=== PATIENT | female | born 1980 | race Caucasian/White ===

== ENCOUNTER → 2019-11-13 10:17 | Outpatient (CLI) | payer OTHER, SELFPAY ==
--- NOTE | ~2019-11-13 | XR_ITS ---
EXAMINATION: XR wrist RT min 3V DATE: 11/13/2019 10:37 INDICATION: Right wrist radial-sided pain. TECHNIQUE: 4 views of right wrist were obtained. COMPARISON: None. FINDINGS: Bone alignment is normal. No fracture. Joint spaces are well maintained. IMPRESSION: 1. Normal right wrist. Reviewed, dictated and finalized at location B. [employer] IMPRESSION: 1. Normal right wrist.
== END ==
PROVIDERS: PCP Family Medicine; Visit Provider Family Medicine
DX: M25.531 Pain in right wrist (principal)
CPT/HCPCS: 73110

== ENCOUNTER 2020-03-30 10:00 | Outpatient (RCR) | payer OTHER, SELFPAY ==
[2020-02-18 08:01] VITALS: BP_SYST 75
--- NOTE | 2020-02-18 09:20 | PTOPEVAL ---
PHYSICAL THERAPY EVALUATION AND PLAN OF CARE 02-18-2020 The PT evaluation was completed for the diagnosis of L shoulder and knee pain. Her plan of treatment is scheduled for 2x/week for 4 weeks. With the self assessment functional scoring, she rated herself for the Quick DASH 80% limitation and LE Functional Scale at 62% limitation in activity tolerance. Thank you for referring Yarely Ewing to [facility]. Please review, sign, date and return this plan of care EDITH. I agree with and certify that the following plan of care is medically necessary. Referring Physician Date Attending Provider: Yuliana Decker MD *PT Outpatient Evaluation Start: 02/18/20 08:01 Document 02/18/20 08:01 SEE (Rec: 02/18/20 09:10 SEE [id number]) Therapy Assessment Status Assessment Status Assessment Status Evaluation Outpatient Past Medical History Past Medical History Source of Past Medical History Patient Neurological History Hx Other Neurological Disorders Yes: neuropathy in hands and feet; ? lupus; Cardiovascular History Hx Hypertension Yes: meds Respiratory History Hx Other Respiratory Disorders Yes: smoker Musculoskeletal History Hx Other Musculoskeletal Disorders Yes: chronic pain-LBP,sh,elbow ,knees,hands,feet Hematological History Hx Other Hematological Disorders Yes: blood clots; Endocrine History Hx Diabetes Yes HEENT History Hx Other HEENT Disorders Yes: L eye blind-diabetes&non cancerous brain tumor Other History Hx Other Medical Conditions Yes: non cancerous brain tumor -monitoring Evaluation Information Problem Diagnosis chronic muscle pain- R knee and L shoulder pain Onset Aug 2019 Subjective Information gradual increase in pain of Query Text:As Reported By Patient/ knees and L shoulder; Family L shoulder- seeing ortho dr at [facility]-dr gave her exercises, made shoulder hurt more; is to have injection next week; B knees: R more pain than L: previously saw ortho, but insurance changed and now general dr managing knee pain; previous dx of patellar chondromalacia; recent doppler testing negative for blood clots LE; Previous Treatments Previous Treatments For This Problem PT here about 1 year for B knee pain- not really help Prior Level of Function Activity Level (Last 3 Months) Occupation not working due to medical
--- NOTE | 2020-03-04 13:55 | PCPTNOTE ---
Patient called & cancelled scheduled appointment this date due to transportation not arriving to pick her up.
--- NOTE | 2020-03-10 11:52 | PCPTNOTE ---
Patient called & cancelled scheduled appointment this date due to severe headache without relief.
--- NOTE | 2020-03-18 13:12 | PTOPEVAL ---
PHYSICAL THERAPY RE-EVALUATION 03-18-2020 Yarely has received 6 PT sessions, from February 17 to today, for the diagnosis of L shoulder and B knee pain/ chronic musculoskeletal pain. With today's self assessment functional activity questionnaires: Quick DASH for shoulder 82% limitation and LE functional scale 50% limitation. Compared to the initial evaluation: pain ratings for knees and L shoulder are the same; reported sleeping tolerance is the same; L shoulder AROM: flexion has increased by 15', abduction has decreased by 5', IR is the same and ER is less; R knee AROM has decreased with extension and increased with flexion; L knee has increased with extension and flexion ranges; LE strength is about the same with supine exercises. She is very guarded with movements, jumped with light pressure over her L shoulder and will not allow any passive stretching to her shoulder. Yarely has been educated on a home exercise program for stretching L shoulder and strengthening B LE's. She voiced frustration about her continued pain and situation of not being able to do much activity. She is to make a follow up appointment. If PT is to continue, please give her a new script. If additional therapy orders are not received, she will be discharged from PT. Thank you for referring Yarely Ewing to [facility]. Please review, sign, date and return this plan of care [facility]. I agree with and certify that the following plan of care is medically necessary. Referring Physician Date Attending Provider: Yuliana Decker, Document 03/18/20 12:30 SEE (Rec: 03/18/20 13:05 SEE [id number]) Assessment Status Re-evaluation Subjective Information Yarely reports: frustrated by Query Text:As Reported By Patient/ pain and not being able to do Family things; want to feel better and not hurt; am doing exercises for arm and legs every day; has seen ortho for her shoulder and had an injection into shoulder few weeks ago; does not have an appointment for dr to follow up, will call; Discussed with her and she understands--will HOLD on PT for now, if wants her to continue, will need new orders . Pain Assessment Timing of Pain Assessment Timing of Pain Assessment Assessment Pain Scale Pain Scale Used Numeric (1 - 10) Self Report Pain Assessment Left Shoulder(s) Reported Pain Level 8 Pain Frequency Chronic Other Pain Description post shoulder; electricity through whole arm ~ 10 x/day Lowest Pain Intensity 3 Greatest Pain Intensity 8 Other Pain Aggravating Factors cannot lie on L side, awaken from sleeping 3-4 x/night due
--- NOTE | 2020-03-30 10:43 | PCPTNOTE ---
pt did not show for today's appointment;
--- NOTE | 2020-03-30 10:43 | PCPTNOTE ---
NEW orders, dated 03-25-2020: Dr Decker: musculoskeletal pain: L and L shoulder, neck, upper back and lower back.
--- NOTE | 2020-04-19 13:42 | PCPTNOTE ---
PHYSICAL THERAPY DISCHARGE 04-19-2020 Attending Provider: Yuliana Dekcer MD Patient:Yarely Ewing Date of :1980 Ms. Ewing has not returned for any further treatments since the reevaluation on 03-18-2020. Therefore she will be discharged at this time. Refer to the reevaluation for her status at the last session. The goals were not addressed. Thank you for referring Yarely to [facility]. Please review, sign, date and return this discharge summary EDITH. I have been updated about the patient's current status and I agree with discharge from the above service at this time. Referring Physician Date
== END 2020-04-21 08:39 | disposition home or self-care (01) ==
LOC: ANHPT 10:00
PROVIDERS: PCP Family Medicine; Visit Provider Family Medicine
DX: M79.10 Myalgia, unspecified site (principal)
CPT/HCPCS: 97014; 97035; 97110; 97140; 97162; G0283

== ENCOUNTER 2020-05-14 13:45 | Observation (INO) | payer OTHER, SELFPAY ==
[2020-05-14] VITALS (11 sets, daily range): BP systolic 116–136; BP diastolic 63–93; PULSE 77–106; RESP 14–20; TEMP 36.1–36.7; O2SAT 86–97; BMI 42.9
--- NOTE | ~2020-05-14 | CT_ITS ---
EXAMINATION: CT brain wo con INDICATION: Unresponsiveness, headache COMPARISON: 09/10/2019 TECHNIQUE: Standard unenhanced head CT. The dose-length product (DLP) was 605.33 mGy-cm. The mA was a djusted according to patient size. Iterative reconstruction technique was employed. FINDINGS: There is no intracranial hemorrhage or infarction. There is a stable fat attenuation mass s uperolateral to the cerebellum at the right cerebellar tentorium. The ventricles are normal. There is no abnormal mass effect or midline shift. The kumar-white matter differentiation is normal. The basal cisterns are patent. Again noted is an old blowout fracture of the medial wall of the left orbit. Th ere is mild mucosal thickening of the paranasal sinuses. IMPRESSION: 1. No acute intracranial abnormality. 2. Unchanged fat attenuation mass along the right cerebellar tentorium, consistent with dermoid or li thomas. Reviewed, dictated and finalized at location A. IMPRESSION: 1. No acute intracranial abnormality. 2. Unchanged fat attenuation mass along the right cerebellar tentorium, consist ent with dermoid or lipoma.
--- NOTE | ~2020-05-14 | US_ITS ---
EXAMINATION: US right upper quadrant DATE: 05/16/2020 08:50 INDICATION: Elevated liver function tests TECHNIQUE: Multiple grayscale and Doppler ultrasound images of the abdomen were obtained. COMPARISON: 02/16/2019 FINDINGS: The head and and body of the pancreas are normal. The pancreatic tail is obscured by bowel gas. The liver demonstrates increased echogenicity, heterogenous echotexture, and decreased through t ransmission. No surface nodularity. Normal hepatopetal flow in the main portal vein. The gallbladder is normal with no abnormal wall thickening, pericholecystic fluid or stones. The normal common bile d uct measures 4 mm. There was no sonographic Rodas sign. IMPRESSION: 1. Diffuse hepatic steatosis. Reviewed, dictated and finalized at location B.
--- NOTE | ~2020-05-14 | CT_ITS ---
EXAMINATION: CTA chest PE protocol DATE: 05/15/2020 11:58 INDICATION: Unresponsive episode. Intraluminal thrombus of right popliteal and gastrocnemius veins TECHNIQUE: Computed tomography angiography (CTA) of the chest was performed with 100 mL Omnipaque-350 intravenous contrast timed to evaluate the pulmonary arteries. Coronal maximum intensity projection 3D-reconstructions were created by the technologist. Automated exposure control and iterative reconst ruction technique were employed. Exam dose: 988.96 mGy-cm total exam DLP. COMPARISON: 05/15/2020 venous duplex examination of the lower extremities FINDINGS: There is diagnostic contrast enhancement of the pulmonary arteries and no evidence of pulmo nary embolism. No thoracic aortic aneurysm or dissection is evident. Normal heart size. Coronary artery calcifications. No pericardial or pleural effusion. No hilar or mediastinal mass lesion or lymphadenopathy. The lungs are clear of infiltrate or consolid ation. Normal morphology of the adrenal glands. Included skeletal structures are unremarkable. IMPRESSION: No evidence of pulmonary embolism Reviewed, dictated and finalized at Location A. Reviewed, dictated and finalized at location A.
--- NOTE | ~2020-05-14 | US_ITS ---
US venous doppler [facility] DATE: 05/15/2020 10:13 INDICATION: Swelling right leg TECHNIQUE: Real-time and color flow imaging and Doppler analysis COMPARISON: 09/05/2015 Venous duplex examination right lower extremity FINDINGS: There is greater saphenous vein patency. Thrombus is identified at the right popliteal and gastrocnemius veins. Otherwise there is spontaneous and phasic flow and normal augmentation and color flow signal at the common femoral, femoral and pos terior tibial and peroneal veins. IMPRESSION: Thrombus is identified at the right popliteal and gastrocnemius veins Reviewed, dictated and finalized at Location A. Reviewed, dictated and finalized at location A. IMPRESSION: Thrombus is identified at the right popliteal and gastrocnemius vei ns
--- NOTE | ~2020-05-14 | XR_ITS ---
EXAMINATION: XR chest 1V portable INDICATION: Hypoxia TECHNIQUE: Portable AP chest at 1452 hours COMPARISON: None available FINDINGS: There are minimal airspace opacities of the lung bases. No pleural effusion or pneumothorax is identified. The cardiomediastinal silhouette is normal. IMPRESSION: 1. Minimal airspace opacities of the lung bases, consistent with atelectasis versus pneumonia. Reviewed, dictated and finalized at location A. IMPRESSION: 1. Minimal airspace opacities of the lung bases, consistent with atelectasis ve rsus pneumonia.
--- NOTE | ~2020-05-14 | CT_ITS ---
EXAMINATION: CTA brain DATE: 05/16/2020 17:09 INDICATION: Chronic headache. TECHNIQUE: Computed tomographic angiography (CTA) of the head was performed without and with 100 mL O mnipaque-350 intravenous contrast. Automated exposure control and iterative reconstruction technique were employed. The dose-length product was 1159.85 mGy-cm. Maximum intensity projection 3D reconstru ctions were created. Volume-rendered 3D reconstructions of the intracranial arteries were created by the technologist on a separate workstation. COMPARISON: Head CT 05/14/2020 FINDINGS: There is no intracranial hemorrhage or acute infarction. Again seen is a 1.8 x 0.5 cm mass of fat along right cerebellar tentorium. There is an old blowout fracture of medial wall of left orbi t. There is mild mucosal thickening in right maxillary sinus. The mastoid air cells are normal. The v ertebral arteries are codominant. There is no significant stenosis of basilar artery or the posterior cerebral arteries. The posterior communicating arteries are normal. There is no significant stenosis of the intracranial internal carotid arteries or anterior or middle cerebral arteries. Anterior comm unicating artery is normal. There is no aneurysm. IMPRESSION: 1. Stable mass of fat along right cerebellar tentorium, consistent with a dermoid versus lipoma. 2. No aneurysm or significant intracranial arterial stenosis. Reviewed, dictated and finalized at location A. IMPRESSION: 1. Stable mass of fat along right cerebellar tentorium, consistent with a dermo id versus lipoma. 2. No aneurysm or significant intracranial arterial stenosis.
--- NOTE | 2020-05-14 14:04 | ECG_ITS ---
Measurements Intervals Comfort Rate: 89 P: 37 DC: 176 QRS: 16 QRSD: 93 T: 61 QT: 391 QTc: 476 Interpretive Statements SINUS RHYTHM LOW QRS VOLTAGE IN LIMB LEADS BORDERLINE R WAVE PROGRESSION, ANTERIOR LEADS BORDERLINE ECG Electronically Signed On 05-14-2020 20:17:09 CDT by Benedicto Arora D.O.
[2020-05-14 14:36] LABS: Alveolar/Arterial O2 Gradient 30.5 mmHg; Base Excess ABG -2.7 mEq/l (+/-2.0); Fractional Inspired Oxygen 21 %; HCO3 ABG 24.2 mEq/l (22.0-26.0); Oxygen Content ABG 19.3 %vol (16.0-22.0); Oxygen Saturation ABG 88.3 % (95.0-100.0); Oxyhemoglobin 85.5 % THb (90.0-100.0); PCO2 ABG 49.6 mmHg (35.0-45.0); PO2 ABG 59.8 mmHg (80.0-100.0); PO2 FiO2 Ratio Arterial Blood 2.85 %; Total Hemoglobin 16.1 g/dL (12.0-18.0); pH ABG 7.306 (7.350-7.450)
[2020-05-14 14:37] LABS: Device ROOM AIR; Modified Allen's Test Pass; Site Drawn RIGHT RADIAL
[2020-05-14] MEDS: ONDANSETRON INJ 4 MG/2 ML VIAL (14:42)
[2020-05-14 14:53] LABS: Basophils Absolute Auto 0.1 K/mm3 (0.0-0.1); Basophils Percent Auto 0.5 % (0.2-1.2); Eosinophils Absolute Auto 0.5 K/mm3 (0-0.3); Eosinophils Percent Auto 5.5 % (0-4.4); Hemoglobin 15.9 g/dL (12.0-15.0); Immature Granulocyte Absolute 0.06 K/mm3 (0.00-0.031); Immature Granulocyte Percent A 0.6 % (0-0.5); Lymphocytes Absolute Auto 1.64 K/mm3 (0.9-3.2); Lymphocytes Percent Auto 16.9 % (18.3-44.2); Mean Corpuscular HGB Conc 31.2 g/dl (32-36); Mean Corpuscular Hemoglobin 28.2 pg (26-34); Mean Corpuscular Volume 90.4 fl (80-100); Mean Platelet Volume 11.3 fl (7.4-10.4); Monocytes Absolute Auto 0.5 K/mm3 (0.1-0.6); Monocytes Percent Auto 5.4 % (2.6-8.5); Neutrophils Absolute Auto 6.9 K/mm3 (1.3-6.7); Neutrophils Percent Auto 71.1 % (45.5-73.1); Platelet Count Result 250 k/mm3 (150-375); Red Blood Count 5.64 M/mm3 (4.2-5.4); Red Cell Distribution Width 13.3 % (11.5-14.5); White Blood Count 9.7 K/mm3 (4.5-10.0)
[2020-05-14 15:03] LABS: INR 0.9; Prothrombin Time 12.3 Seconds (11.1-14.7)
--- NOTE | 2020-05-14 15:03 | ED.AMS ---
HPI - Altered Mental Status General Chief Complaint: Altered Mental Status Stated Complaint: ams Time Seen by Provider: 05/14/20 14:20 Source: patient Mode of arrival: ambulatory Limitations: no limitations History of Present Illness HPI narrative: This patient is a 39 year old female with history chronic pain on hydrocodone who presents for evaluation of decreased responsiveness. PAtient states she remembers going outside with her brother and then next thing EMS arrived. PAtient was found unresponsive with pinpoint pupil. She was given 4 mg narcan intranasal and she became responsive. Patimaggie is now having nausea and vomiting. She states she has been taking norco 10mg/325 4 times a day for a year. She denies taking extra and she denies street drugs. She reports she other aguilar felt fine. She denies report mild headache and she has known benign brain tumor. MD complaint: decreased responsiveness Related Data Home Medications Medication Instructions Recorded Confirmed albuterol sulfate 2 inh INHALATION Q4H PRN 05/14/20 alprazolam 0.5 mg PO DAILY PRN 05/14/20 ertugliflozin [Steglatro] 15 mg PO DAILY 05/14/20 fenofibrate 160 mg PO HS 05/14/20 hydrocodone-acetaminophen 1 tablet PO QID 05/14/20 hydroxyzine HCl 25 mg PO HS 05/14/20 insulin degludec [Tresiba 186 unit SUBCUT DAILY 05/14/20 FlexTouch U-200] insulin regular human [Humulin R 30 sliding scale dose SUBCUT 05/14/20 Regular U-100 Insuln] USEASDIRECTD metformin 1,000 mg PO BID 05/14/20 metoprolol succinate 100 mg PO DAILY 05/14/20 ropinirole 1 mg PO HS 05/14/20 rosuvastatin 20 mg PO HS 05/14/20 spironolactone 12.5 mg PO DAILY 05/14/20 torsemide 20 mg PO DAILY 05/14/20 valsartan 80 mg PO DAILY 05/14/20 zolpidem 5 mg PO HS 05/14/20 Allergies Allergy/AdvReac Type Severity Reaction Status Date / Time Fish Containing Products Allergy Unknown Anaphylactic Verified 02/16/19 13:46 Shock ipecac Allergy Unknown Siezure Verified 02/16/19 13:46 ketorolac Allergy Unknown Swelling Verified 05/14/20 17:06 of Lip/Tongue/Throat tramadol Allergy Unknown Hives / Verified 02/16/19 13:46 Red Face Review of Systems Review of Systems: All systems reviewed & are unremarkable except as noted in HPI and below PMFSH Past Medical History Medical History (Updated 05/14/20 @ 19:30 by Felisa Ferreira MD) Chronic back pain Diabetes mellitus Hyperlipidemia Surgical History Surgical History (Updated 05/14/20 @ 15:10 by Felisa Ferreira MD) H/O tubal ligation S/P endometrial ablation Social History Social History (Updated 05/14/20 @ 15:09 by Felisa Ferreira MD) Smoking status: Never smoker Alcohol intake: never Substance use: never Exam Narrative: Exam Narrative: GENERAL: morbid obesity and in no acute distress. HEAD: Normocephalic, atraumatic EYES: PERRLA and EOMI, conjunctiva clear without discharge EARS: TM's clear bilaterally without erythema or dullness NOSE: Nares clear, no rhinorrhea or epistaxis THROAT:Mucous membranes moist, Oropharynx normal without erythema, exudate, peritonsillar swelling or fluctuance NECK: Supple, without lymphadenopathy or mass RESPIRATORY: No respiratory distress, Airway patent, Respirations non-labored, Clear to auscultation without rales, rhonchi or wheeze HEART: Regular rate and rhythm. No murmur heard. Normal peripheral pulses. ABDOMEN: Soft, nontender, nondistended, normal active bowel sounds. No masses. No rebound or guarding, No organomegaly. EXTREMITIES: No edema, normal strength with full range of motion. SKIN: Warm, dry, normal color without rash NEURO: Alert and oriented x3. CN 2-12 grossly intact. No focal deficits. PSYCH: Normal mood and affect. Course Reevaluation(s) Reevaluation #1: Patient is more alert. PAtient states her family that was present during event today he she had seizure activity. She states she slumped over and then her eyes rolled back and patie
[2020-05-14 15:04] LABS: Partial Thromboplastin Time 22.4 SECONDS (22.3-36.8)
[2020-05-14 15:06] LABS: Acetaminophen < 10 ug/mL (10-30); Ethanol < 10 mg/dL (<10); Salicylate < 1.0 mg/dL (2-20)
[2020-05-14 15:07] LABS: Alanine Aminotransferase 62 U/L (4-35); Albumin Level 4.4 g/dL (3.5-5.1); Alkaline Phosphatase 67 U/L (38-126); Anion Gap 12.4 mmol/L (7-16); Aspartate Amino Transferase 90 U/L (14-36); Bilirubin,Total 0.3 mg/dL (0.2-1.3); Blood Urea Nitrogen 45 mg/dL (7-17); Calcium 9.7 mg/dL (8.4-10.2); Carbon Dioxide 24 mmol/L (22-30); Chloride 109 mmol/L (98-107); Estimated CRCL calculation 85 ml/min; Estimated Glomerular Filt Rate 55; Glucose 168 mg/dL (65-105); Potassium 4.4 mmol/L (3.4-5.0); Sodium 141 mmol/L (137-145)
[2020-05-14] MEDS: NALOXONE HCL 0.4 MG/ML VIAL IV PUSH (15:14)
[2020-05-14] MEDS: SODIUM CHLORIDE 0.9% IV 1,000 ML 999 ML IV CONT (15:38)
[2020-05-14 16:52] LABS: Add Urine Microscopic? YES; Appearance Urine Clear (Clear); Bacteria Urine Trace /hpf; Bilirubin Urine Negative (Negative); Blood Urine Negative (Negative); Color Urine Straw (Yellow); Glucose Urine UA 3+ mg/dL (Negative); Ketones Urine Negative (Negative); Leukocyte Esterase Ur 2+ LEU/UL (Negative); Nitrate Urine Negative (Negative); Protein Urine 2+ mg/dL (Negative); Specific Grav Ur 1.025 (1.001-1.035); Squamous Epithelial Cell Urine Few /hpf (Few); Urobilinogen Urine Negative mg/dL (<2.0); WBC Urine 0-3 /hpf
[2020-05-14 17:02] LABS: Amphetamine Screen Urine Negative (Negative); Barbiturate Screen Urine Negative (Negative); Benzodiazepines Screen Urine Negative (Negative); Cannabinoid Screen Urine Positive (Negative); Cocaine Screen Urine Negative (Negative); Methadone Screen Urine Negative (Negative); Opiate Screen Urine Positive (Negative); Phencyclidine Screen Urine Negative (Negative)
[2020-05-14 18:14] LABS: Glucose Point of Care 115 (65-105)
[2020-05-14] MEDS: SODIUM CHLORIDE 0.9% IV 1,000 ML 125 ML IV CONT (19:04)
--- NOTE | 2020-05-14 21:00 | PM.IMHP ---
H&P: HPI History of Present Illness Chief complaint: Unreponsive episode. Narrative: Yarely Ewing is a 39-year-old female with multiple medical problems to include type 2 diabetes mellitus, hypertension, chronic kidney disease, hypertension, hyperlipidemia, and chronic pain who presented to the emergency department earlier this afternoon via EMS for evaluation after an unresponsive episode. She was in her usual state of health today and not long prior to arrival she was sitting outside with her brother, having a cigarette. According to her brother, the patient complained of it being hot outside before she slumped backwards and exhibited seizure-like activity. reportedly her color turned dusky and lips were purple, and EMS was summoned. On their arrival she was unresponsive with pinpoint pupils and shallow respirations, a which she was given assistance via Ambu bag. 4 milligrams of Narcan was given intranasally and she became responsive with nausea and vomiting shortly thereafter. She does take hydrocodone 10 milligrams up to 4 times a day for over a year for chronic pain, but she rarely takes them as prescribed, typically taking only 1 or 2 a day. She did take 1 tablet this morning and she denies ever taking extra than what is prescribed. Her glucose was about 120 this morning and was reportedly 190 on EMS arrival. She has had 3 other similar episodes in the last year or so, but has never had it worked up. Today was the 1st day that it was actually witnessed by someone else. She had a seizure many years ago attributed to ipecac. She has no history of sleep apnea and denies orthopnea, PND, and daytime somnolence. Her boyfriend has never mentioned that she snores and he has never witnessed any apneic episodes. At the time my evaluation she has no significant complaints except for mild headache. She is understandably concerned about what happened today. She denies vertigo, focal weakness, paresthesias, chest pain, pleuritic pain, palpitations, shortness of breath, nausea, vomiting, and sweats. Review of Systems Review of Systems: Narrative: 12 systems were reviewed with pertinent positives and negatives as per HPI. She denies sick contacts and recent travel. No cough or shortness of breath. 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 She is afraid to have surgery on that eye as she went blind after having surgery for her retinal detachment. She believes her diabetes is well controlled with fasting glucose never greater than 140. Last hemoglobin A1c was around 7%. She has been following a keto diet and has lost some weight. No history of cardiac dysrhythmia or obstructive sleep apnea. She has had no further instances of nausea or vomiting since the ambulance. Except as documented, all other systems were reviewed and are negative. [facility] Past Medical History Medical History (Updated 05/15/20 @ 00:07 by Raquel Broderick PA-C) Anxiety Benign brain tumor Chronic back pain Chronic kidney disease, stage 3 Baseline creatinine is around 1.30. Deep venous thrombosis Previously reported positive for lupus anticoagulant however further workup per life manager at [facility] determined that this was erroneous. 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 History of genitourinary surgery Urethra rebuilt with stent in place. History of hysterectomy History of right salpingo-oophorectomy (02/23/15) Pathology revealed immature cystic teratoma. History of tubal ligation History of unilater
[2020-05-15] VITALS (10 sets, daily range): BP systolic 113–147; BP diastolic 72–82; PULSE 69–89; RESP 16; TEMP 36.3–37.1; O2SAT 94–98
[2020-05-15 00:34] LABS: Magnesium 2.2 mg/dL (1.6-2.3)
[2020-05-15 00:37] LABS: D Dimer 0.24 ug/mL (<0.48)
[2020-05-15] MEDS: SODIUM CHLORIDE 0.9% IV 1,000 ML 125 ML IV CONT (03:35)
[2020-05-15 06:06] LABS: Basophils Percent Auto 0.5 % (0.2-1.2); Eosinophils Absolute Auto 0.3 K/mm3 (0-0.3); Hematocrit 45.3 % (37.0-47.0); Immature Granulocyte Absolute 0.03 K/mm3 (0.00-0.031); Immature Granulocyte Percent A 0.4 % (0-0.5); Lymphocytes Absolute Auto 2.03 K/mm3 (0.9-3.2); Lymphocytes Percent Auto 26.3 % (18.3-44.2); Mean Corpuscular HGB Conc 30.9 g/dl (32-36); Mean Corpuscular Hemoglobin 28.6 pg (26-34); Mean Corpuscular Volume 92.6 fl (80-100); Mean Platelet Volume 11.5 fl (7.4-10.4); Monocytes Absolute Auto 0.6 K/mm3 (0.1-0.6); Monocytes Percent Auto 7.5 % (2.6-8.5); Neutrophils Absolute Auto 4.7 K/mm3 (1.3-6.7); Neutrophils Percent Auto 61.3 % (45.5-73.1); Platelet Count Result 210 k/mm3 (150-375); Red Blood Count 4.89 M/mm3 (4.2-5.4); Red Cell Distribution Width 13.7 % (11.5-14.5); White Blood Count 7.7 K/mm3 (4.5-10.0)
[2020-05-15 06:32] LABS: Anion Gap 10.3 mmol/L (7-16); Blood Urea Nitrogen 39 mg/dL (7-17); Calcium 8.4 mg/dL (8.4-10.2); Carbon Dioxide 27 mmol/L (22-30); Chloride 108 mmol/L (98-107); Estimated CRCL calculation 80 ml/min; Estimated Glomerular Filt Rate 50; Glucose 84 mg/dL (65-105); Potassium 4.3 mmol/L (3.4-5.0); Sodium 141 mmol/L (137-145)
[2020-05-15 06:33] LABS: Alanine Aminotransferase 50 U/L (4-35); Albumin Level 3.8 g/dL (3.5-5.1); Alkaline Phosphatase 45 U/L (38-126); Aspartate Amino Transferase 43 U/L (14-36); Bilirubin,Total < 0.1 mg/dL (0.2-1.3)
[2020-05-15 07:37] LABS: Glucose Point of Care 71 (65-105)
[2020-05-15] MEDS: ENOXAPARIN 40 MG/0.4 ML SYRINGE SUB-Q (08:44)
[2020-05-15] MEDS: VALSARTAN 80 MG TABLET PO (08:45)
[2020-05-15] MEDS: TORSEMIDE 20 MG TABLET PO (08:45)
[2020-05-15] MEDS: SPIRONOLACTONE 12.5 MG TABLET PO (08:45)
[2020-05-15] MEDS: METOPROLOL SUCCINATE EXT REL 100 MG TABCR PO (08:46)
--- NOTE | 2020-05-15 09:59 | PC.NURSE ---
Patient does not want bed alarm on. She has taken a diuretic and has to go to the bathroom frequently. Reviewed fall precautions with her. disalarmed bed alarm for patient per her request.
--- NOTE | 2020-05-15 10:26 | PM.IMPN ---
Progress Note: A&P Assessment and Plan (1) Episode of unresponsiveness: Code(s): R41.89 - Other symptoms and signs involving cognitive functions and awareness Status: Acute Assessment and Plan: Patient had witnessed event that could be seizure from hypoglycemia, de kevon seizures (possibly related to the fatty mass near the cerebellum), unintentional drug overdose, PE or combination of such. Cardiac dysrhythmia seems less likely. We will continue telemetry and follow up on the echocardiogram. CT brain normal. EEG has been ordered. Neurology consult obtained. D-dimer is normal but Doppler positive for DVT. (2) Deep venous thrombosis: Code(s): I82.409 - Acute embolism and thrombosis of unspecified deep veins of unspecified lower extremity Status: Acute Assessment and Plan: Right LE venous doppler positive for DVT in the right popliteal and gastrocnemius veins. Patient has hx of DVT/PE. Her DVTs have his right leg. She mentions she year ago was clear. Will start Eliquis. Case management consult for specialized medicines. Obtain old records [facility]. (3) Polycythemia: Code(s): D75.1 - Secondary polycythemia Status: Acute Assessment and Plan: Patietn with mildly elevated Hgb felt related to her tobacco use and/or dehydration. Apnea link normal (6hrs on RA). Repeat Hgb normal with IV fluids. Okay to stop IV fluids. She does take Demadex and spironolactone chronically. (4) Chronic kidney disease, stage 3: Code(s): N18.3 - Chronic kidney disease, stage 3 (moderate) Status: Acute Assessment and Plan: Baseline Cr 1.3-1.5. Cr here better at 1.1-1.2. Suspect patient at baseline. Continue to follow. (5) Elevated LFTs: Code(s): R79.89 - Other specified abnormal findings of blood chemistry Status: Acute Assessment and Plan: Patient with mildly elevated AST and ALT. This is been noted in the past. Level trending downward since admission. No previous workup noted. Will check right upper quadrant and hepatitis panel. (6) Chronic back pain: Code(s): M54.9 - Dorsalgia, unspecified; G89.29 - Other chronic pain Status: Acute Assessment and Plan: Patient complaining chronic back pain. Will resume her [place] at lower dose and follow. Will resume her Lyrica as well. (7) Insulin dependent type 2 diabetes mellitus: Code(s): E11.9 - Type 2 diabetes mellitus without complications; Z79.4 - [facility] (current) use of insulin Status: Acute Assessment and Plan: No A1c listed. Glucose reviewed on 05/15/2020. Glucose mostly well controlled. Continue Invokana and Lantus. Continue Accu-Cheks covering with sliding scale. Hypoglycemia protocol available as needed. CHECK A1C (8) Essential hypertension: Code(s): I10 - Essential (primary) hypertension Status: Acute Assessment and Plan: Blood pressure reviewed on 05/15/2020. Blood pressure well controlled. Continue Diovan and Toprol. Adjust medications as needed. (9) Tobacco abuse: Code(s): Z72.0 - Tobacco use Status: Acute Assessment and Plan: Patient educated about the benefits of smoking cessation. (10) Hypoxia: Code(s): R09.02 - Hypoxemia Status: Acute Assessment and Plan: Patient was hypoxic in the field most likely related to the unresponsive event as detailed above. She has not been hypoxic here. Evaluation as above. Subjective Date/time seen: 05/15/20 10:26 Interval history: 39yo female with DM here for syncopal episode. SHe has had 4 epsiodes over the past 2 years where she has syncope that starts with heat in her feet that radiates up to her head. Yesterday, she was sitting outside when she felt 'hot' and then awoke in the ambulance. She was told she was shaking and apneic with 'turning purple'. No hx of seizures. SHe has DM and has hypoglycemi
[2020-05-15 10:59] LABS: Glucose Point of Care 240 (65-105)
[2020-05-15] MEDS: INSULIN GLARGINE (*BKC) 100 UNITS/ML 80 UNITS SUB-Q ×2 (11:14→20:55)
[2020-05-15] MEDS: INSULIN ASPART (*BKC) 100 UNITS/ML SUB-Q (11:16)
[2020-05-15] MEDS: PREGABALIN 50 MG CAPSULE 100 MG PO ×3 (11:21→23:31)
[2020-05-15] MEDS: APIXABAN 5 MG TABLET 10 MG PO ×2 (13:09→20:45)
[2020-05-15 16:28] LABS: Glucose Point of Care 184 (65-105)
--- NOTE | 2020-05-15 18:00 | WPDNEURCNPN ---
Assessment and Plan Assessment and plan (1) Deep venous thrombosis: Code(s): I82.409 - Acute embolism and thrombosis of unspecified deep veins of unspecified lower extremity Status: Acute (2) Tobacco abuse: Code(s): Z72.0 - Tobacco use Status: Acute (3) Essential hypertension: Code(s): I10 - Essential (primary) hypertension Status: Acute (4) Insulin dependent type 2 diabetes mellitus: Code(s): E11.9 - Type 2 diabetes mellitus without complications; Z79.4 - director long term care (current) use of insulin Status: Acute (5) Chronic back pain: Code(s): M54.9 - Dorsalgia, unspecified; G89.29 - Other chronic pain Status: Acute (6) Elevated LFTs: Code(s): R79.89 - Other specified abnormal findings of blood chemistry Status: Acute (7) Chronic kidney disease, stage 3: Code(s): N18.3 - Chronic kidney disease, stage 3 (moderate) Status: Acute (8) Polycythemia: Code(s): D75.1 - Secondary polycythemia Status: Acute (9) Episode of unresponsiveness: Code(s): R41.89 - Other symptoms and signs involving cognitive functions and awareness Status: Acute (10) Hypoxia: Code(s): R09.02 - Hypoxemia Status: Acute (11) Partial seizure: Code(s): R56.9 - Unspecified convulsions Status: Acute Additional Plan will start her on low-dose Keppra rest of the management as such and follow-up with Dr. Sander Tejeda told her she should not be driving Consult date: 05/15/20 Time Seen: 17:30 HPI: Yarely Ewing is a 39 year old female is seen because of the seizure episode she is known to cerebellar lesion which has been stable she is MRI incompatible due to electronic device for her bladder dysfunction she also has underlying chronic renal failure have a had headache and was taking hydrocodone and she swears that she was taking 4 times a day and she did not overdose she is back to her baseline still has a mild headache otherwise no chest pain no shortness of breath no fever chills sore throat she does have a DVT in her lower extremity and has been restarted with the anticoagulation Review of Systems Review of Systems: All systems reviewed & are unremarkable except as noted in HPI and below PMFSH Past Medical History Medical History Anxiety Benign brain tumor Chronic back pain Chronic kidney disease, stage 3 Baseline creatinine is around 1.30. Deep venous thrombosis Previously reported positive for lupus anticoagulant however further workup per structural analysis engineer at [facility] determined that this was erroneous. 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 History of genitourinary surgery Urethra rebuilt with stent in place. History of hysterectomy History of right salpingo-oophorectomy (02/23/15) Pathology revealed immature cystic teratoma. History of tubal ligation History of unilateral salpingectomy Status post excision of lipoma Multiple lipomas in benign cyst excised from the back, neck, and forearm. Family History Family History Father Acute myocardial infarction Social History Social History Social History: Surrogate decision maker: Janet Fernandez, mother. Code status: Full code. Smoking packs per day: 0.5 Smoking cigarettes per day: 10.0 Years smoked: 28 Smoking pack-years: 14.00 Smoking status: Current every day smoker Tobacco type: cigarettes Alcohol intake: never Subst
[2020-05-15] MEDS: ROSUVASTATIN 10 MG TABLET 20 MG PO (20:44)
[2020-05-15] MEDS: FENOFIBRATE 160 MG TABLET PO (20:45)
[2020-05-15] MEDS: levETIRAcetam 250 MG TABLET PO (20:45)
[2020-05-15] MEDS: rOPINIRole HCL 1 MG TABLET PO (20:47)
[2020-05-15 22:51] LABS: Glucose Point of Care 210 (65-105)
[2020-05-16] VITALS (8 sets, daily range): BP systolic 123–132; BP diastolic 73–79; PULSE 72–87; RESP 16–18; TEMP 35.6–36.9; O2SAT 97–98
--- NOTE | 2020-05-16 00:05 | ECHO_ITS ---
Patient Info Name: Yarely Ewing Age: 39 years : 1980 Gender: Female Ht: 69 in Wt: 290 lbs BSA: 2.59 m2 HR: 84 bpm BP: 123 / 79 mmHg Heart Rhythm: Sinus Rhythm Technical Quality: Good Exam Date: 05/16/2020 10:32 AM Exam Location: [facility] Pulmonary Exam Room: 342 Patient Status: Outpatient Admit Date: 05/14/2020 Staff Ordering Physician: Raquel Broderick PA-C Sports Recruiter: Bailey Irizarry RDCS Attending Provider: Patrice Manzo MD Referring Physician: Meggan JOHN; Exam Type: CA echo doppler color flow Study Info Indications - htn unresponsive episode Complete two-dimensional, color flow and Doppler transthoracic echocardiogram is performed. Summary 1. Left ventricular systolic function is normal, estimated at 65-70%. 2. There is mildly increased left ventricular wall thickness. 3. The left ventricular diastolic function is grade I diastolic dysfunction. 4. There is no aortic valve stenosis. 5. There is trace mitral valve regurgitation. 6. There is trace tricuspid valve regurgitation. 7. No pulmonary hypertension, estimated pulmonary arterial systolic pressure is 31 mmHg. Left Ventricle Left ventricular chamber dimension is normal. Left ventricular systolic function is normal, estimated at 65-70%. There is mildly increased left ventricular wall thickness. The left ventricular diastolic function is grade I diastolic dysfunction. Right Ventricle Right ventricular chamber dimension is normal. Right ventricular systolic function is normal. Left Atria Left atrial chamber dimension is normal. Right Atria Right atrial chamber dimension is normal. Aortic Valve The aortic valve is not well visualized. There is no aortic valve stenosis. There is no aortic valve regurgitation. Pulmonic Valve The pulmonic valve is not well visualized. There is trace pulmonic regurgitation. Mitral Valve The mitral valve has normal leaflets. There is trace mitral valve regurgitation. Tricuspid Valve The tricuspid valve leaflets are normal. There is trace tricuspid valve regurgitation. No pulmonary hypertension, estimated pulmonary arterial systolic pressure is 31 mmHg. Pericardium/Pleural The pericardium appears epicardial fat pad. Aorta The aortic root size at the sinus of Valsalva is normal. Left Ventricular Outflow Tract Name Value Normal LVOT 2D LVOT Diameter 2.01 cm LVOT Doppler LVOT Peak Gradient 6 mmHg LVOT Mean Gradient 3 mmHg LVOT VTI 25.78 cm LVOT VTI/AV VTI Ratio 0.86 LVOT Stroke Volume 82.05 ml LVOT CO 15.40 l/min LVOT CI 5.94 L/min/m2 Pulmonic Valve Name Value Normal PV Doppler PV Peak Gradient
[2020-05-16 00:15] LABS: Glucose Point of Care 173 (65-105)
--- NOTE | 2020-05-16 06:45 | PC.NURSE ---
pt. has been NPO since 24:00 on 05/16/2020, no orders for NPO, yet per pt. she was informed she would not be allowed to have food/drink past 24:00. 06:00/ 06:30 medications were held as well.
[2020-05-16 07:10] LABS: Alanine Aminotransferase 44 U/L (4-35); Albumin Level 3.6 g/dL (3.5-5.1); Alkaline Phosphatase 61 U/L (38-126); Anion Gap 10.3 mmol/L (7-16); Aspartate Amino Transferase 34 U/L (14-36); Bilirubin,Total < 0.1 mg/dL (0.2-1.3); Blood Urea Nitrogen 26 mg/dL (7-17); Calcium 8.4 mg/dL (8.4-10.2); Carbon Dioxide 26 mmol/L (22-30); Chloride 108 mmol/L (98-107); Estimated CRCL calculation 95 ml/min; Estimated Glomerular Filt Rate > 60; Glucose 137 mg/dL (65-105); Potassium 4.3 mmol/L (3.4-5.0); Sodium 140 mmol/L (137-145)
[2020-05-16 07:50] LABS: Folic Acid 9.6 ng/mL (2.76->20)
[2020-05-16 07:58] LABS: Hepatitis C Virus Antibody Negative (Negative)
[2020-05-16 08:09] LABS: Glucose Point of Care 118 (65-105)
[2020-05-16 08:27] LABS: Hepatitis B Core IgM Result Negative (Negative)
[2020-05-16] MEDS: levETIRAcetam 250 MG TABLET PO (09:23)
[2020-05-16] MEDS: VALSARTAN 80 MG TABLET PO (09:23)
[2020-05-16] MEDS: APIXABAN 5 MG TABLET 10 MG PO (09:23)
[2020-05-16] MEDS: CANAGLIFLOZIN 100 MG TABLET PO (09:24)
[2020-05-16] MEDS: INSULIN GLARGINE (*BKC) 100 UNITS/ML 80 UNITS SUB-Q (09:24)
[2020-05-16] MEDS: PREGABALIN 50 MG CAPSULE 100 MG PO ×2 (09:24→14:27)
[2020-05-16] MEDS: METOPROLOL SUCCINATE EXT REL 100 MG TABCR PO (09:26)
[2020-05-16 09:42] LABS: HAV RESULT Negative (Negative); Hepatitis B Surface Antigen Negative (Negative)
--- NOTE | 2020-05-16 09:42 | WPDNEUROPN ---
Progress Note: A&P Assessment and Plan (1) Episode of unresponsiveness: Code(s): R41.89 - Other symptoms and signs involving cognitive functions and awareness Status: Acute (2) Frequent headaches: Code(s): R51 - Headache Status: Acute Additional Plan seizure and headaches R/O aneurysm will need CTA Review of Systems Review of Systems: All systems reviewed & are unremarkable except as noted in HPI and below Exam Const: General: cooperative, healthy appearing, comfortable and no acute distress Nutritional Appearance: obese Orientation/consciousness: patient oriented x3 Limitations: no limitations HENMT: Head: normal to inspection Ears: hearing grossly normal bilaterally General nose exam: Normal external nose present and No nasal discharge present Face and sinus: normal facial exam Eyes: General: appearance normal, both eyes and all related structures Neck: Neck: full ROM Resp: Effort & Inspection: normal respiratory effort and able to speak in complete sentences Auscultation: clear to auscultation bilaterally Cardio: Rate: regular rate Rhythm: regular rhythm Skin: General skin exam: no rashes or lesions noted Neuro: General: patient oriented x3 Cranial nerves: Yes CN's II-XII intact bilaterally Cognition (Neuro): normal cognition Motor exam (neuro): 5/5 motor strength present throughout Sensory Exam: normal sensation Deep tendon reflexes (DTR's): Right triceps reflex intensity grade: 1+, Left triceps reflex intensity grade: 1+, Rt Biceps (C5, C6): 1+, Left biceps reflex intensity grade: 1+, Right brachioradialis reflex intensity grade: 1+, Left brachioradialis reflex intensity grade: 1+, Right patellar reflex intensity grade: 1+, Left patellar reflex intensity grade: 1+, Right ankle reflex intensity grade: 1+ and Left ankle reflex intensity grade: 1+ Plantar Reflex Responses: downgoing: bilateral Psych: Appearance: grossly normal Objective Data Vital Signs Vital Signs: Vital Signs - 24 hr 05/15/20 12:00 05/15/20 14:00 05/15/20 15:59 Temperature 36.5 C Pulse Rate 89 72 82 Respiratory Rate 16 Blood Pressure 147/73 H Pulse Oximetry 98 05/15/20 20:00 05/15/20 21:01 05/16/20 00:00 Temperature 37.1 C Pulse Rate 76 77 74 Respiratory Rate 16 Blood Pressure 130/82 Pulse Oximetry 94 05/16/20 04:00 05/16/20 06:00 05/16/20 09:26 Temperature 36.9 C Pulse Rate 72 76 82 Respiratory Rate 16 Blood Pressure 123/79 Pulse Oximetry 98 Intake/Output Intake/Output: Intake & Output 05/13/20 05/14/20 05/15/20 05/16/20 23:59 23:59 23:59 23:59 Intake Total 1340 5080 320 Output Total 4900 1400 Balance 1340 180 -1080 Meds/Results Medications: Active Medications Generic Name Dose Route Start Last Admin Trade Name Freq PRN Reason Stop Dose Admin Acetaminophen 650 mg 05/15/20 00:05 Tylenol Tablet PO Q6H PRN Pain Hydrocodone Bitart/Acetaminophen 1 tab 05/15/20 07:52 05/16/20 09:25 [place] 5-325 Mg PO 1 tab Q6H PRN Administration Pain Albuterol 2 puff 05/14/20 23:58 Proventil Hfa INHALATION Q4H PRN Shortness Of Breath Apixaban 10 mg 05/15/20 11:25 05/16/20 09:23 Eliquis PO 05/21/20 21:01 10 mg Q12HR TEE Administration Apixaban 5 mg 05/22/20 09:00 Eliquis PO Q12HR TEE Canagliflozin 100 mg 05/16/20 06:30 05/16/20 09:24 Invokana PO 100 mg DAILY@0630 TEE Administration Dextrose 12.5 gm 05/15/20 00:06 Dextrose 50% Syringe IV PUSH PRN PRN Hypoglycemia Protocol Fenofibrate 160 mg 05/15/20 21:00 05/15/20 20:45 Fenofibrate PO 160 mg HS TEE Administration Glucagon 1 mg 05/15/20 00:06 Glucagon For Inj IM PRN PRN Hypoglycemia Protocol Glucose 15 gm 05/15/20 00:06 Glutose 15 PO PRN PRN Hypoglycemia Protocol Dextrose 1,000 mls @ 100 mls/hr 05/15/20 00:06 Dextrose 5% 1,000 Ml IVPB PRN
[2020-05-16 12:16] LABS: Glucose Point of Care 216 (65-105)
[2020-05-16] MEDS: INSULIN ASPART (*BKC) 100 UNITS/ML SUB-Q (12:19)
--- NOTE | 2020-05-16 13:30 | NEURO_ITS ---
TEST: ELECTROENCEPHALOGRAM DIAGNOSIS: SEIZURE LIKE ACTIVITY PATIENT NUMBER: [id number] EEG NUMBER: [id number] RECORDING DATE: 05/16/20 CLINICAL HISTORY: Patient reports she lost consciousness couple of days ago and was told she had seizure like activity. She has no previous history of seizure. CONDITION OF RECORDING: Drowsy and sleep EEG DESCRIPTION: During drowsiness low voltage beta activity is seen diffusely mixed with waxing and waning posterior alpha rhythms. Bilateral symmetrical sleep activity is seen during sleep including sleep spindles and vertex waves. Hyperventilation and photic stimulation were not done. Nonparoxysmal. Nonfocal. Nonlateralizing. IMPRESSION: No significant abnormalities noted. MTDD
--- NOTE | 2020-05-16 17:27 | PCDIET ---
Nutrition consult complete. Edu provided on a [facility] diet that can aid in wt loss. Details under nutrition teaching. Thank you for the consult.
--- NOTE | 2020-05-16 17:34 | PM.DS ---
DS: Admitting Diagnosis Admitting Diagnosis Admitting Diagnosis: Other symptoms and signs involving cognitive functions and awareness DS: Discharge Diagnosis Discharge Diagnosis (1) Episode of unresponsiveness: Code(s): R41.89 - Other symptoms and signs involving cognitive functions and awareness Status: Acute Assessment and Plan: Patient had witnessed event that could be seizure. She was on tele here and no dysrhythmias noted. CT brain normal. EEG pending. Neurology consulted. 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 She is aware of this and this is an old finding. No aneurysms. Echo showing EF 65-70% with Grade I diastolic dysfunction. Suspected seizure and Keppra started. Patient did receive Narcan in the field and appear to wake up. Plan to continue Keppra and have patient follow up with Neurology. No driving (patient states she does not drive anyway) (2) Deep venous thrombosis: Code(s): I82.409 - Acute embolism and thrombosis of unspecified deep veins of unspecified lower extremity Status: Acute Assessment and Plan: D-dimer is normal but Doppler positive for DVT in the right popliteal and gastrocnemius veins. Patient has hx of DVT/PE with her DVTs in the right leg. Old records from [facility] showing chronic extensive RLE DVT in 2016. She mentions she had a doppler that was negative one year ago so can no confirm if clot is acute or chronic. Eliquis started. (3) Polycythemia: Code(s): D75.1 - Secondary polycythemia Status: Acute Assessment and Plan: Patient with mildly elevated Hgb felt related to her tobacco use and/or dehydration. Apnea link normal (6hrs on RA). Repeat Hgb normal with IV fluids. (4) Chronic kidney disease, stage 3: Code(s): N18.3 - Chronic kidney disease, stage 3 (moderate) Status: Acute Assessment and Plan: Baseline Cr 1.3-1.5. Cr here better at 1.0-1.2. Suspect patient at baseline. Continue to follow. (5) Elevated LFTs: Code(s): R79.89 - Other specified abnormal findings of blood chemistry Status: Acute Assessment and Plan: Patient with mildly elevated AST and ALT. This is been noted in the past. Level trending downward since admission. Right upper quadrant showing hepatic steatosis which is the most liekly cause. Hepatitis panel negative. (6) Chronic back pain: Code(s): M54.9 - Dorsalgia, unspecified; G89.29 - Other chronic pain Status: Acute Assessment and Plan: Patient complaining chronic back pain. We continued her [place] at lower dose. Lyrica resumed as well. (7) Insulin dependent type 2 diabetes mellitus: Code(s): E11.9 - Type 2 diabetes mellitus without complications; Z79.4 - long term acute care registered nurse (current) use of insulin Status: Acute Assessment and Plan: A1c 7.0. Glucose monitored. Glucose mostly well controlled. We continued Invokana and Lantus. Monitored with Accu-Cheks covering with sliding scale. Hypoglycemia protocol available as needed. (8) Essential hypertension: Code(s): I10 - Essential (primary) hypertension Status: Acute Assessment and Plan: Blood pressure monitored. Blood pressure well controlled. We continued Diovan and Toprol. (9) Tobacco abuse: Code(s): Z72.0 - Tobacco use Status: Acute Assessment and Plan: Patient educated about the benefits of smoking cessation. (10) Hypoxia: Code(s): R09.02 - Hypoxemia Status: Acute Assessment and Plan: Patient was hypoxic in the field most likely related to the unresponsive event as detailed above. She has not been hypoxic here. Evaluation as above. DS: Summary Hospital Course Reason for hospitalization: 39yo female brought in by EMS after becoming unresponsive with seizure like activity. Please see H&P for details.
[2020-05-16] MEDS: ALPRAZolam 0.5 MG TABLET PO (17:43)
[2020-05-16 17:52] LABS: Glucose Point of Care 210 (65-105)
== END 2020-05-16 18:40 | disposition home or self-care (01) ==
LOC: ANHED 18:01 → ANH3MED 18:26
PROVIDERS: Physician Assistant; Admitting Provider Internal Medicine; Emergency Provider General Practice; PCP Family Medicine; Visit Provider Internal Medicine
DX: R41.89 Other symptoms and signs involving cognitive functions and awareness (principal); R56.9 Unspecified convulsions; I82.431 Acute embolism and thrombosis of right popliteal vein; I82.461 Acute embolism and thrombosis of right calf muscular vein; D75.1 Secondary polycythemia; R79.89 Other specified abnormal findings of blood chemistry; E11.22 Type 2 diabetes mellitus with diabetic chronic kidney disease; I12.9 Hypertensive chronic kidney disease with stage 1 through stage 4 chronic kidney disease, or unspecified chronic kidney disease; N18.3 Chronic kidney disease, stage 3 (moderate); R51 Headache; R09.02 Hypoxemia; E78.5 Hyperlipidemia, unspecified; M54.9 Dorsalgia, unspecified; G89.29 Other chronic pain; L71.9 Rosacea, unspecified; Z79.4 Long term (current) use of insulin; Z79.899 Other long term (current) drug therapy; Z86.718 Personal history of other venous thrombosis and embolism; Z96.0 Presence of urogenital implants
CPT/HCPCS: 36415; 36600; 70450; 70496; 71045; 71275; 76705; 80048; 80053; 80074; 80076; 80307; 81001; 82607; 82746; 82805; 82948; 83036; 83735; 84443; 85025; 85380; 85610; 85730; 93005; 93306; 93970; 94762; 95816; 96360; 96361; 96365; 96372; 96375; 99285; A9270; G0378; G0379; J0131; J1650; J1815; J2310; J2405; J7030; Q9967

== ENCOUNTER 2020-06-20 06:35 | Emergency (ER) | payer OTHER, SELFPAY ==
--- NOTE | ~2020-06-20 | CT_ITS ---
EXAMINATION: CT abdomen pelvis w con INDICATION: Nausea and vomiting, left flank pain TECHNIQUE: Computed tomographic images of the abdomen and pelvis were obtained after the administrati on of 100 cc of Omnipaque 350 intravenous contrast. The dose-length product (DLP) was 1576.91 mGy-cm. Automated exposure control and iterative reconstruction technique were employed. COMPARISON: 02/16/2019 FINDINGS: The lung bases are clear. The heart size is normal. The liver is diffusely low in attenuati on when compared with the spleen, consistent with hepatic steatosis. The spleen, pancreas, gallbladde r, adrenal glands, and right kidney are normal. There is a 2.5 x 2.2 cm exophytic lesion of the left posterior medial kidney measuring slightly greater than fluid attenuation and also slightly increased in size since the comparison examination. No stones are identified in the kidneys, ureters, or bladd er. There is no hydronephrosis or hydroureter. No pathologically enlarged abdominal or pelvic lymph n odes are identified. There is no free intraperitoneal gas or evidence of bowel obstruction. Changes o f hysterectomy are noted. A neurostimulator device is implanted in the subcutaneous tissues of the [employer] lower back. Its lead enters the pelvis through the sacrum on the right. The appendix is normal. IMPRESSION: 1. No CT correlate for the patient's symptoms. 2. Indeterminate left kidney mass. Follow-up with nonemergent CT or MRI without and with contrast is recommended. Reviewed, dictated and finalized at location A.
[2020-06-20 06:39] VITALS: BP 179/100; PULSE 87; RESP 16; TEMP 36.4; O2SAT 99
--- NOTE | 2020-06-20 07:03 | ED.FEMALEGU ---
HPI - Female Genitourinary General Chief complaint: Urogenital-Female Stated complaint: left flank pain Time Seen by Provider: 06/20/20 07:02 Source: patient Mode of arrival: ambulatory Limitations: no limitations History of Present Illness HPI Narrative: Patient is a 39-year-old female with a history of type 2 diabetes, DVT on Eliquis, stage III chronic kidney disease, hypertension, lupus who presents for evaluation of left flank pain. Patient reports pain in her left flank that is severe in nature. States the pain is throbbing without radiation to the right back or the front of the abdomen. Associated with nausea without vomiting. Patient states she feels somewhat diaphoretic but denies any fever. She denies chest pain or palpitations. No dysuria or hematuria. No constipation or diarrhea. Patient states she has history of this in the past but cannot remember what her diagnosis was in the past. She is going to establish with a conservation science officer today, but states that she cannot handle the pain any longer so chose to come to the emergency department. Related Data Home Medications Medication Instructions Recorded Confirmed Humulin R Regular U-100 Insuln 30 sliding scale dose SUBCUT 05/14/20 05/14/20 USEASDIRECTD Steglatro 15 mg PO DAILY 05/14/20 05/14/20 Tresiba FlexTouch U-200 186 unit SUBCUT DAILY 05/14/20 05/14/20 albuterol sulfate 2 inh INHALATION Q4H PRN 05/14/20 05/14/20 alprazolam 0.5 mg PO BID PRN 05/14/20 05/14/20 fenofibrate 160 mg PO HS 05/14/20 05/14/20 hydroxyzine HCl 25 mg PO HS 05/14/20 05/14/20 metformin 1,000 mg PO BID 05/14/20 05/14/20 metoprolol succinate 100 mg PO DAILY 05/14/20 05/14/20 ropinirole 1 mg PO HS 05/14/20 05/14/20 rosuvastatin 20 mg PO HS 05/14/20 05/14/20 spironolactone 12.5 mg PO DAILY 05/14/20 05/14/20 torsemide 20 mg PO DAILY 05/14/20 05/14/20 valsartan 80 mg PO DAILY 05/14/20 05/14/20 Allergies Allergy/AdvReac Type Severity Reaction Status Date / Time Fish Containing Products Allergy Unknown Anaphylactic Verified 06/20/20 06:43 Shock ipecac Allergy Unknown Siezure Verified 06/20/20 06:43 ketorolac Allergy Unknown Swelling Verified 06/20/20 06:43 of Lip/Tongue/Throat tramadol Allergy Unknown Hives / Verified 06/20/20 06:43 Red Face Review of Systems Review of Systems: Narrative: CONSTITUTIONAL: Denies fever, chills, reports feeling diaphoretic EYES: Denies visual changes, redness, or discharge. ENT: Denies rhinorrhea, congestion, sore throat, or otalgia. CARDIOVASCULAR: Denies chest pain, palpitations, or edema. RESPIRATORY: Denies cough or dyspnea. GASTROINTESTINAL: Denies abdominal pain, reports nausea, denies diarrhea Thorax: Reports left flank pain GENITOURINARY: Denies dysuria or hematuria. SKIN: Denies rash or itching. MUSCULOSKELETAL: Denies joint pain or myalgia. NEUROLOGIC: Denies headache, numbness, or weakness. PSYCHIATRIC: Reports history of anxiety and depression [facility] Past Medical History Medical History Anxiety Benign brain tumor Chronic back pain Chronic kidney disease, stage 3 Baseline creatinine is around 1.30. Deep venous thrombosis Previously reported positive for lupus anticoagulant however further workup per felt finisher at [facility] determined that this was erroneous. 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 History of genitourinary surgery Urethra rebuilt with stent in place. History of hysterectomy History of right salpingo-oophorectomy (02/23/15) Pathology revealed immature cystic teratoma.
[2020-06-20 07:10] LABS: Basophils Absolute Auto 0.1 K/mm3 (0.0-0.1); Basophils Percent Auto 0.7 % (0.2-1.2); Eosinophils Absolute Auto 0.2 K/mm3 (0-0.3); Eosinophils Percent Auto 3.3 % (0-4.4); Hematocrit 53.3 % (37.0-47.0); Hemoglobin 17.2 g/dL (12.0-15.0); Immature Granulocyte Absolute 0.02 K/mm3 (0.00-0.031); Immature Granulocyte Percent A 0.3 % (0-0.5); Lymphocytes Absolute Auto 1.59 K/mm3 (0.9-3.2); Lymphocytes Percent Auto 22.7 % (18.3-44.2); Mean Corpuscular HGB Conc 32.3 g/dl (32-36); Mean Corpuscular Hemoglobin 28.7 pg (26-34); Mean Platelet Volume 11.4 fl (7.4-10.4); Monocytes Absolute Auto 0.5 K/mm3 (0.1-0.6); Monocytes Percent Auto 7.1 % (2.6-8.5); Neutrophils Absolute Auto 4.6 K/mm3 (1.3-6.7); Neutrophils Percent Auto 65.9 % (45.5-73.1); Platelet Count Result 242 k/mm3 (150-375); Red Blood Count 5.99 M/mm3 (4.2-5.4); Red Cell Distribution Width 13.2 % (11.5-14.5)
[2020-06-20 07:18] LABS: Add Urine Microscopic? YES; Appearance Urine Clear (Clear); Bacteria Urine Trace /hpf; Bilirubin Urine Negative (Negative); Blood Urine Negative (Negative); Color Urine Straw (Yellow); Glucose Urine UA 3+ mg/dL (Negative); Ketones Urine Negative (Negative); Leukocyte Esterase Ur Negative LEU/UL (Negative); Mucus Urine Rare /lpf; Nitrate Urine Negative (Negative); Protein Urine 2+ mg/dL (Negative); RBC Urine 0-2 /hpf (0-2); Specific Grav Ur 1.016 (1.001-1.035); Squamous Epithelial Cell Urine Rare /hpf (Few); Urobilinogen Urine Negative mg/dL (<2.0); WBC Urine 0-3 /hpf
--- NOTE | 2020-06-20 07:26 | PC.NURSE ---
Assumed care of pt, pt is alert and upright on stretcher. Discussed POC.
[2020-06-20 07:27] LABS: Anion Gap 7 mmol/L (8-16); Blood Urea Nitrogen 28 mg/dL (7-17); Calcium 9.4 mg/dL (8.4-10.2); Carbon Dioxide 29 mmol/L (22-30); Chloride 104 mmol/L (98-107); Estimated Glomerular Filt Rate 45; Glucose 165 mg/dL (65-105); Potassium 4.2 mmol/L (3.4-5.0); Sodium 140 mmol/L (137-145)
[2020-06-20] MEDS: ONDANSETRON INJ 4 MG/2 ML VIAL IV PUSH (07:46)
[2020-06-20] MEDS: SODIUM CHLORIDE 0.9% IV 1,000 ML 999 ML IV CONT (07:48)
--- NOTE | 2020-06-20 07:50 | PC.NURSE ---
Pt taken to CT scan via stretcher w/ fluids infusing.
[2020-06-20 08:42] VITALS: BP 142/79; PULSE 62; RESP 17; O2SAT 96
[2020-06-20 09:09] VITALS: BP 152/82; PULSE 79; RESP 14; O2SAT 96
== END 2020-06-20 09:11 | disposition home or self-care (01) ==
PROVIDERS: Emergency Provider Emergency Medicine; PCP Family Medicine
DX: R10.9 Unspecified abdominal pain (principal); E11.22 Type 2 diabetes mellitus with diabetic chronic kidney disease; I12.9 Hypertensive chronic kidney disease with stage 1 through stage 4 chronic kidney disease, or unspecified chronic kidney disease; F17.210 Nicotine dependence, cigarettes, uncomplicated; N18.3 Chronic kidney disease, stage 3 (moderate); Z79.4 Long term (current) use of insulin; Z79.84 Long term (current) use of oral hypoglycemic drugs; Z86.718 Personal history of other venous thrombosis and embolism; E78.5 Hyperlipidemia, unspecified; Z86.14 Personal history of Methicillin resistant Staphylococcus aureus infection; Z79.01 Long term (current) use of anticoagulants; N28.89 Other specified disorders of kidney and ureter
CPT/HCPCS: 36415; 74177; 80048; 81001; 85025; 96361; 96365; 96375; 99284; J0131; J1170; J2405; J7030; Q9967